=== PATIENT | male | born 1990 | race Caucasian/White ===

== ENCOUNTER 2019-12-01 18:10 | Emergency (ER) | payer OTHER, SELFPAY ==
--- NOTE | ~2019-12-01 | CT_ITS ---
EXAMINATION: CT abdomen pelvis w con DATE: 12/01/2019 21:44 INDICATION: Left testicular pain TECHNIQUE: Computed tomography (CT) of the abdomen and pelvis was performed with 100 cc Omnipaque 350 intravenous contrast. Automated exposure control and iterative reconstruction technique were employe d. Exam dose: 401.49 mGy-cm total exam DLP. COMPARISON: None. FINDINGS: The lung bases are clear of infiltrate or consolidation. Normal heart size. No pericardial effusion or pleural effusion. The liver, gallbladder, bile ducts, spleen, pancreas and pancreatic duct are normal in appearance. No rmal morphology of the adrenal glands. 1.8 cm right renal cyst. There is a very small lower pole nonobstructing left renal calculus. No urin gucci tract obstruction or hydroureteronephrosis. Normal caliber of the abdominal aorta. No intraperitoneal or retroperitoneal or pelvic mass lesion or adenopathy or ascites. Status post appendectomy. There is mild diverticulosis of the of the left colon; no CT evidence of diverticulitis. No bowel obs truction, bowel wall thickening, pneumatosis or intraperitoneal free air. There is a small fat-containing umbilical hernia. The urinary bladder, prostate gland and seminal vesicles are unremarkable. Included skeletal structures are unremarkable. IMPRESSION: 1.8 cm right renal cyst Nonobstructing small lower pole left renal calculus; no ureteral calculus or hydroureteronephrosis Diverticulosis of the left colon Reviewed, dictated and finalized at [facility]. Reviewed, dictated and finalized at [facility]. IMPRESSION: 1.8 cm right renal cyst Nonobstructing small lower pole left renal calculus; no ureteral calculus or hy droureteronephrosis Diverticulosis of the left colon
--- NOTE | ~2019-12-01 | US_ITS ---
US scrotum doppler DATE: 12/01/2019 20:57 INDICATION: Left scrotal pain TECHNIQUE: Real-time and color flow imaging and Doppler analysis of the scrotal contents COMPARISON: None FINDINGS: The right testicle measures 4.3 x 3.1 x 2.3 cm. The left testicle measures 4.7 x 2.7 x 2.3 cm. There is vascular flow to both testicles on Doppler and color flow imaging. No testicular mass le anne or torsion is evident. The epididymis appears normal bilaterally. . On Valsalva maneuver the pampiniform plexus veins on the left measuring up to 2.2 mm dimension IMPRESSION: Mild left varicocele Reviewed, dictated and finalized at [facility]. Reviewed, dictated and finalized at [facility]. IMPRESSION: Mild left varicocele
[2019-12-01 18:23] VITALS: BP 132/85; PULSE 91; RESP 18; TEMP 36.3; O2SAT 98
[2019-12-01 19:46] LABS: Add Urine Microscopic? NO; Appearance Urine Clear (Clear); Bilirubin Urine Negative (Negative); Blood Urine Negative (Negative); Color Urine Straw (Yellow); Glucose Urine UA Negative (Negative); Ketones Urine Negative (Negative); Leukocyte Esterase Ur Negative LEU/UL (Negative); Nitrate Urine Negative (Negative); Protein Urine Negative (Negative); Specific Grav Ur 1.013 (1.001-1.035); Urobilinogen Urine Negative mg/dL (<2.0)
--- NOTE | 2019-12-01 20:02 | ED.MALEGU ---
HPI - Male Genitourinary General Chief complaint: Urogenital-Male Stated complaint: back pain/ testicle pain Time Seen by Provider: 12/01/19 19:36 Source: patient Mode of arrival: ambulatory Limitations: no limitations History of Present Illness HPI Narrative: This patient is a 29 year old male who presents for evaluation of tailbone pain and left testicular pain for 2 weeks. PAtient states he has had constant sharp pain to his tail bone for 2 weeks. He denies any trauma. He does state this pain is worse with sitting. He also has left testicular pain for 2 weeks and today he is now have right testicular pain. He states his testicle is tender but denies swelling or redness. Today he reports bubbling sensation to left pelvis into his testicle. He has no nausea or vomiting. HE denies urinary symptoms. Complaint: testicle pain Onset (ago): week(s) (2) Severity scale (1-10): 5 Related Data Home Medications Medication Instructions Recorded Confirmed Adderall 20 mg PO DAILY 12/01/19 12/01/19 Allergies Allergy/AdvReac Type Severity Reaction Status Date / Time No Known Allergies Allergy Verified 12/01/19 19:33 Review of Systems Review of Systems: All systems reviewed & are unremarkable except as noted in HPI and below Constitutional: Constitutional: Denies body ache(s) and Denies chills Gastrointestinal: Gastrointestinal: Reports abdominal pain Genitourinary: Genitourinary: Denies difficulty with ejaculations, Denies genital lesions, Denies dysuria, Denies penile discharge and Reports testicular pain PMFSH Past Medical History Medical History (Updated 12/02/19 @ 00:00 by Brianda Echols) Patient denies medical problems Surgical History Surgical History (Updated 12/01/19 @ 20:02 by Asia Owen MD) Hx of appendectomy Social History Social History (Updated 12/01/19 @ 20:03 by Asia Owen MD) Smoking status: Never smoker Substance use type: marijuana Gender identity (if verbalized by the patient): Male Exam Narrative: Exam Narrative: GENERAL: Well-appearing, well-nourished, and in no acute distress. HEAD: Normocephalic, atraumatic EYES: PERRLA and EOMI, conjunctiva clear without discharge EARS: TM's clear bilaterally without erythema or dullness NOSE: Nares clear, no rhinorrhea or epistaxis THROAT:Mucous membranes moist, Oropharynx normal without erythema, exudate, peritonsillar swelling or fluctuance NECK: Supple, without lymphadenopathy or mass RESPIRATORY: No respiratory distress, Airway patent, Respirations non-labored, Clear to auscultation without rales, rhonchi or wheeze HEART: Regular rate and rhythm. No murmur heard. Normal peripheral pulses. ABDOMEN: Soft, nontender, nondistended, normal active bowel sounds. No masses. No rebound or guarding, No organomegaly. EXTREMITIES: No edema, normal strength with full range of motion. SKIN: Warm, dry, normal color without rash NEURO: Alert and oriented x3. CN 2-12 grossly intact. No focal deficits. PSYCH: Normal mood and affect. Course Vital Signs Vital signs: Vital Signs Temperature 97.3 F L 12/01/19 18:23 Pulse Rate 91 12/01/19 18:23 Respiratory Rate 18 12/01/19 18:23 Blood Pressure 132/85 12/01/19 18:23 Pulse Oximetry 98 12/01/19 18:23 Temperature 97.3 F L 12/01/19 18:23 Pulse Rate 88 12/01/19 21:04 Respiratory Rate 17 12/01/19 21:04 Blood Pressure 128/74 12/01/19 21:04 Pulse Oximetry 99 12/01/19 21:04 MDM - Male Genitourinary Lab Data Attestation: I reviewed the patient's lab results. Result diagrams: 12/01/19 20:14 12/01/19 20:14 Labs: Lab Results 12/01/19 12/01/19 12/01/19 Range/Units 19:38 20:14 20:14 WBC 5.8 (4.5-10.0) K/mm3 RBC 5.83 (4.6-6.20) M/mm3 Hgb 17.3 (14.0-18.0) g/dL Hct 49.2 (42.0-52.0) % MCV 84.4 (80-100) fl MCH 29.7 (26-34) pg MCHC 35.2 (32-36) g/dl RDW 12.3 (11.5-14.5)
[2019-12-01 20:19] LABS: Basophils Absolute Auto 0.1 K/mm3 (0.0-0.1); Basophils Percent Auto 1.2 % (0.2-1.2); Eosinophils Absolute Auto 0.1 K/mm3 (0-0.3); Hematocrit 49.2 % (42.0-52.0); Hemoglobin 17.3 g/dL (14.0-18.0); Immature Granulocyte Absolute 0.01 K/mm3 (0.00-0.031); Immature Granulocyte Percent A 0.2 % (0-0.5); Lymphocytes Absolute Auto 2.23 K/mm3 (0.9-3.2); Lymphocytes Percent Auto 38.6 % (18.3-44.2); Mean Corpuscular HGB Conc 35.2 g/dl (32-36); Mean Corpuscular Hemoglobin 29.7 pg (26-34); Mean Corpuscular Volume 84.4 fl (80-100); Monocytes Absolute Auto 0.6 K/mm3 (0.1-0.6); Monocytes Percent Auto 9.5 % (2.6-8.5); Neutrophils Absolute Auto 2.9 K/mm3 (1.3-6.7); Neutrophils Percent Auto 49.5 % (45.5-73.1); Platelet Count Result 210 k/mm3 (150-375); Red Blood Count 5.83 M/mm3 (4.6-6.20); Red Cell Distribution Width 12.3 % (11.5-14.5); White Blood Count 5.8 K/mm3 (4.5-10.0)
[2019-12-01 20:31] LABS: Alanine Aminotransferase 30 U/L (4-50); Albumin Level 4.7 g/dL (3.5-5.1); Alkaline Phosphatase 64 U/L (38-126); Aspartate Amino Transferase 30 U/L (17-59); Bilirubin,Total 0.7 mg/dL (0.2-1.3); Blood Urea Nitrogen 14 mg/dL (9-20); Calcium 9.5 mg/dL (8.4-10.2); Carbon Dioxide 28 mmol/L (22-30); Chloride 101 mmol/L (98-107); Estimated CRCL calculation 98 ml/min; Estimated Glomerular Filt Rate > 60; Glucose 83 mg/dL (75-110); Potassium 3.9 mmol/L (3.4-5.0); Sodium 138 mmol/L (137-145)
[2019-12-01 21:04] VITALS: BP 128/74; PULSE 88; RESP 17; O2SAT 99
== END 2019-12-01 23:00 | disposition home or self-care (01) ==
PROVIDERS: Emergency Provider General Practice
DX: I86.1 Scrotal varices (principal); K57.90 Diverticulosis of intestine, part unspecified, without perforation or abscess without bleeding; N20.0 Calculus of kidney
CPT/HCPCS: 36415; 74177; 76870; 80053; 81003; 85025; 93976; 99284; Q9967

== ENCOUNTER → 2019-12-08 16:03 | Outpatient (CLI) | payer OTHER, SELFPAY ==
--- NOTE | ~2019-12-08 | XR_ITS ---
XR lumbar spine 2-3V 12/08/2019 16:22 Indication: Low back pain Procedure: 3 views lumbar spine Comparison: No prior studies for comparison. Findings: Mild levocurvature of the lumbar spine. Vertebral body and disc heights are preserved. Pedi cles intact. Sacral foramen are symmetric. No sacral abnormality seen. Impression: 1: No significant abnormality of the lumbar spine. Reviewed, dictated and finalized at [facility]. Impression: 1: No significant abnormality of the lumbar spine.
== END ==
DX: M54.5 Low back pain (principal)
CPT/HCPCS: 72100

== ENCOUNTER 2020-11-22 16:11 | Emergency (ER) | payer OTHER, SELFPAY ==
--- NOTE | 2020-11-22 16:22 | ED.GENADULT ---
HPI - General Adult General Chief complaint: Headache Stated complaint: Headache Time Seen by Provider: 11/22/20 16:22 Source: patient and RN notes reviewed Mode of arrival: ambulatory Limitations: no limitations History of Present Illness HPI narrative: 30-year-old male presents with complaints of intermittent headache (not the worst of his life) with aura (light sensitivity, nausea, and vomiting) for the past 7 days. Peter reports increasing symptoms, rating a 3/10 NUMBERS at this time. Ibuprofen (last taken on 11/19/2020), Naproxen (last taken on 11/21/2020 at approximately 22:00), and Tylenol #4 (last taken on 11/22/2020 at approximately 10:00 AM) with little to no relief. No neck stiffness. No fever or chills. No URI symptoms. No head injury. History of migraines. Denies dizziness, vision change, confusion, or seizure activity. Intermittent nausea and vomiting without abdominal pain. Tolerating po intake well. The patient reports he has not been diagnosed with COVID-19. The patient reports he received 2 ASSET4 COVID-19 vaccines in Sep, 2020. The patient reports he is not waiting for the results of a COVID-19 lab test. The patient reports he does not have weakness, fatigue, myalgia, or facial swelling. The patient reports he does not not have a new or worsening cough or shortness of breath. Denies chest pain. The patient reports he does not have any rhinorrhea, congestion, sore throat, and diarrhea. Denies recent traveling. Denies concerns for COVID-19 or exposures. At this time, the patient is not suspected of having COVID-19. Some parts of this dictation were generated by voice recognition software and may contain typographical and/or grammatical inaccuracies. Related Data Home Medications Medication Instructions Recorded Confirmed acetaminophen-codeine 1 tablet Q3-4H 11/22/20 11/22/20 lisdexamfetamine [Vyvanse] 50 mg DAILY 11/22/20 11/22/20 naproxen 500 mg BID 11/22/20 11/22/20 Allergies Allergy/AdvReac Type Severity Reaction Status Date / Time No Known Allergies Allergy Verified 12/01/19 19:33 Review of Systems Review of Systems: Narrative: CONSTITUTIONAL: Denies fever, chills, sweats. EYES: Denies visual changes, redness, discharge. ENT: Denies rhinorrhea, congestion, sore throat, otalgia. CARDIOVASCULAR: Denies chest pain, palpitations, edema. RESPIRATORY: Denies dyspnea, wheezing, cough. GASTROINTESTINAL: Denies abdominal pain, diarrhea. Complaints of nausea, vomiting. GENITOURINARY: Denies dysuria, hematuria, abnormal discharge. SKIN: Denies rash or itching. MUSCULOSKELETAL: Denies acute back pain, joint pain, or myalgia. NEUROLOGIC: Denies numbness or focal weakness. Complaints of headaches with aura. PSYCHIATRIC: Denies anxiety or depression. All systems reviewed & are unremarkable except as noted in HPI and below. [facility]LY [facility] Past Medical History Medical History (Updated 11/28/20 @ 15:08 by MOSES Prado) ADD (attention deficit disorder) without hyperactivity Hx of migraines Surgical History Surgical History Hx of appendectomy Family History Family History (Updated 11/28/20 @ 15:07 by MOSES Prado) Father Alive and well Mother Allergies Glaucoma Social History Social History (Updated 11/28/20 @ 15:09 by MOSES Prado) Smoking status: Former smoker Tobacco type: cigarettes Second hand tobacco smoke exposure: No Smoking end date: 06/27/13 Alcohol intake: current Substance use: current Substance use type: marijuana Living arrangements: with family Occupation/Education: occupation Gender identity (if verbalized by the patient): Male Comments At time of signature, agree with the nurse past medical, surgical, social, and family history. There is no relevant family history pertinent to the presenting complaint. Exam Narrative: Exam Narrative: GENERAL: This is a we
[2020-11-22 16:25] VITALS: BP 137/85; PULSE 70; RESP 18; TEMP 36.8; O2SAT 99
[2020-11-22] MEDS: KETOROLAC (*BKC) 60 MG/2 ML VIAL IM (16:44)
[2020-11-22] MEDS: ONDANSETRON HCL ODT 4 MG TABLET PO (16:44)
== END 2020-11-22 16:58 | disposition home or self-care (01) ==
PROVIDERS: Emergency Provider Nurse Practitioner Family
DX: R51.9 Headache, unspecified (principal); F98.8 Other specified behavioral and emotional disorders with onset usually occurring in childhood and adolescence
CPT/HCPCS: 96372; 99213; A9270; G0463; J1885

== ENCOUNTER → 2020-12-24 13:24 | Outpatient (CLI) | payer OTHER, SELFPAY ==
--- NOTE | ~2020-12-24 | MR_ITS ---
EXAMINATION: MR brain/brain stem wo/w con EXAM DATE: 12/24/2020 14:03 INDICATION: Episodic tension-type headache. TECHNIQUE: Magnetic resonance imaging (MRI) of the brain/brain stem obtained without contrast. Sagit ron T1, axial diffusion, gradient echo (T2*), T1, T2, FLAIR sequences obtained. Patient was then inj ected with 15 cc intravenous Multihance contrast. Axial and coronal postcontrast T1 weighted sequence s obtained. There is no prior study for comparison. FINDINGS: Small arachnoid cyst in the posterior fossa posterior medially. This is not a clinically si gnificant finding. There are no areas of restricted diffusion to suggest acute infarction. There is no acute hemorrhage seen on the T2*, a hemosiderin sensitive sequence. No intraparenchymal brain mas s. The ventricles are normal in size. There are no extra-axial collections. Flow voids are seen in the cerebral arteries on the T2-weighted sequences consistent with their expected patency. The orbit s are unremarkable. Soft tissue is unremarkable. There are no areas of abnormal enhancement on the post contrast images. IMPRESSION: 1. Unremarkable brain MRI examination. Reviewed, dictated and finalized at location [facility].
[2020-12-24 13:45] LABS: Estimated Glomerular Filt Rate > 60
== END ==
DX: G44.211 Episodic tension-type headache, intractable (principal)
CPT/HCPCS: 70553; A9577

== ENCOUNTER 2023-09-16 09:41 | Outpatient (CLI) | payer OTHER, SELFPAY ==
[2023-09-22 18:06] VITALS: BMI 27.8
--- NOTE | 2023-09-22 18:06 | WPDHOMESLEEP ---
Sleep Study - Home Unattended Date of Study: 09/16/23 Ordering Provider: Hernan Arreola DO Interpreting Provider: Cee Godoy DO Home Sleep Study Type: Watch PAT Height: 1.75 m Weight: 85.729 kg Body Mass Index: 27.8 Neck Circumference (inches): 16 Brady: 0 Reason for Sleep Study Loud snoring, witnessed apneas Sleep History The patient is a 33-year-old male with anxiety, ADHD, chronic headaches, GERD and history of tobacco use that had a sleep study ordered by his primary care physician for evaluation of sleep apnea. The patient rarely awakens from sleep short of breath. He denies awakening at night with heartburn, belching or cough. He constantly snores loudly enough that others complain. He frequently has trouble sleeping when he has a cold. He denies waking up gasping for air throughout the night. He occasionally has breathing problems at night observed by himself or others. He occasionally sweats excessively at night. He rarely has heart palpitations or irregular heartbeats during the night. He denies falling asleep during the day and while driving. He denies sleep paralysis and cataplexy. He frequently has trouble at school or work due to sleepiness. He rarely experiences vivid dreamlike scenes upon awakening or falling asleep. He denies feeling afraid of going to sleep. He rarely has nightmares. He rarely remembers his dreams. He constantly has thoughts racing through his mind. He occasionally feels sad or depressed. He frequently has anxiety. He occasionally has muscular tension. He frequently notices parts of his body jerk. He occasionally kicks during the night. He occasionally has crawling and aching feelings in his legs and occasionally has leg pain during the night. He rarely grinds his teeth during sleep and rarely awakens with morning jaw pain. He is occasionally bothered by pain during the day but never awakened by pain during the night. He occasionally wakes up feeling stiff in the morning. He occasionally wakes up with sore or achy muscles. He occasionally wakes up with pain in the neck, spine and other joints. He goes to bed between 11:00 p.m. to 1:00 a.m. on and week and between 10:00 p.m. to 12:00 a.m. on the weekends. It can take anywhere from 20-60 minutes to fall asleep. He wakes up twice throughout the night at most for unknown reasons but is able to fall back asleep within a few minutes. He wakes up at 10:00 a.m. on weekdays and at 5:00 a.m. on the weekends. He typically gets 5 hours of sleep per night on work nights and around 8 hours of sleep per night on the weekends. He will stay in bed for 1 hour at most on his days off. He currently lives with his . He denies consuming any caffeinated beverages within 2 hours of bedtime. He denies engaging in physical exercise before bedtime. He will read and watch television before falling asleep. He denies taking naps in the afternoon or evening. He consumes 1 energy drink per day. He is a former smoker. He consumes 2-3 alcoholic beverages per day. He uses an unspecified recreational drugs. [facility] Past Medical History Medical History ADD (attention deficit disorder) without hyperactivity Hx of migraines Surgical History Surgical History Hx of appendectomy Family History Family History Father Alive and well Mother Allergies Glaucoma Social History Social History Social History: caffeine 1 [employer] daily Smoking status: Former smoker Tobacco type: cigarettes Second hand tobacco smoke exposure: No Smoking end date: 06/27/13 Alcohol intake: current Drinks per week: 3 Substance use: current Substance use type: marijuana Lack of Transportation: No Lack of Food: Nev
== END 2023-09-17 07:30 | disposition home or self-care (01) ==
PROVIDERS: PCP Family Medicine; Visit Provider Family Medicine
DX: R06.83 Snoring (principal); G47.10 Hypersomnia, unspecified
CPT/HCPCS: 95800

== ENCOUNTER 2023-10-04 09:26 | Outpatient (CLI) | payer OTHER, SELFPAY ==
[2023-10-18 15:01] VITALS: BMI 26.9
--- NOTE | 2023-10-18 15:01 | WPDSLEEPSTUD ---
Sleep Study Date of Study: 10/04/23 Ordering Provider: Hernan Arreola DO Interpreting Physician: Cee Godoy DO Sleep Study Type: Polysomnogram Height: 1.75 m Weight: 82.554 kg Body Mass Index: 26.9 Neck Circumference (inches): 15.75 [place]: 0 Reason for Sleep Study Loud snoring, witnessed apneas Sleep History The patient is a 33-year-old male with anxiety, ADHD, chronic headaches, GERD and history of tobacco use that had a sleep study ordered by his primary care physician for evaluation of sleep apnea. The patient rarely awakens from sleep short of breath. He denies awakening at night with heartburn, belching or cough. He constantly snores loudly enough that others complain. He frequently has trouble sleeping when he has a cold. He denies waking up gasping for air throughout the night. He occasionally has breathing problems at night observed by himself or others. He occasionally sweats excessively at night. He rarely has heart palpitations or irregular heartbeats during the night. He denies falling asleep during the day and while driving. He denies sleep paralysis and cataplexy. He frequently has trouble at school or work due to sleepiness. He rarely experiences vivid dreamlike scenes upon awakening or falling asleep. He denies feeling afraid of going to sleep. He rarely has nightmares. He rarely remembers his dreams. He constantly has thoughts racing through his mind. He occasionally feels sad or depressed. He frequently has anxiety. He occasionally has muscular tension. He frequently notices parts of his body jerk. He occasionally kicks during the night. He occasionally has crawling and aching feelings in his legs and occasionally has leg pain during the night. He rarely grinds his teeth during sleep and rarely awakens with morning jaw pain. He is occasionally bothered by pain during the day but never awakened by pain during the night. He occasionally wakes up feeling stiff in the morning. He occasionally wakes up with sore or achy muscles. He occasionally wakes up with pain in the neck, spine and other joints. He goes to bed between 11:00 p.m. to 1:00 a.m. on and weekdays and between 10:00 p.m. to 12:00 a.m. on the weekends. It can take anywhere from 20-60 minutes to fall asleep. He wakes up twice throughout the night at most for unknown reasons but is able to fall back asleep within a few minutes. He wakes up at 10:00 a.m. on weekdays and at 5:00 a.m. on the weekends. He typically gets 5 hours of sleep per night on work nights and around 8 hours of sleep per night on the weekends. He will stay in bed for 1 hour at most on his days off. He currently lives with his . He denies consuming any caffeinated beverages within 2 hours of bedtime. He denies engaging in physical exercise before bedtime. He will read and watch television before falling asleep. He denies taking naps in the afternoon or evening. He consumes 1 energy drink per day. He is a former smoker. He consumes 2-3 alcoholic beverages per day. He uses an unspecified recreational drugs. [facility] Past Medical History Medical History ADD (attention deficit disorder) without hyperactivity Hx of migraines Surgical History Surgical History Hx of appendectomy Family History Family History Father Alive and well Mother Allergies Glaucoma Social History Social History Social History: caffeine 1 [employer] daily Smoking status: Former smoker Tobacco type: cigarettes Second hand tobacco smoke exposure: No Smoking end date: 06/27/13 Alcohol intake: current Drinks per week: 3 Substance use: current Substance use type: marijuana Lack of Transportation: No Lack of Food: Never True Curre
== END 2023-10-05 06:35 | disposition home or self-care (01) ==
PROVIDERS: PCP Family Medicine; Visit Provider Family Medicine
DX: G47.61 Periodic limb movement disorder (principal); G47.10 Hypersomnia, unspecified
CPT/HCPCS: 95810

== ENCOUNTER 2023-10-20 14:19 | Outpatient (CLI) | payer OTHER, SELFPAY ==
[2023-10-20 19:59] LABS: Basophils Absolute Auto 0.1 K/mm3 (0.0-0.1); Basophils Percent Auto 1.2 % (0.2-1.2); Eosinophils Percent Auto 0.3 % (0-4.4); Hemoglobin 16.9 g/dL (14.0-18.0); Immature Granulocyte Absolute 0.01 K/mm3 (0.00-0.031); Immature Granulocyte Percent A 0.2 % (0-0.5); Lymphocytes Absolute Auto 2.12 K/mm3 (0.9-3.2); Lymphocytes Percent Auto 34.9 % (18.3-44.2); Mean Corpuscular HGB Conc 35.2 g/dl (32-36); Mean Corpuscular Hemoglobin 30.9 pg (26-34); Mean Corpuscular Volume 87.8 fl (80-100); Mean Platelet Volume 11.2 fl (7.4-10.4); Monocytes Absolute Auto 0.5 K/mm3 (0.1-0.6); Monocytes Percent Auto 8.2 % (2.6-8.5); Neutrophils Absolute Auto 3.4 K/mm3 (1.3-6.7); Neutrophils Percent Auto 55.2 % (45.5-73.1); Platelet Count Result 223 k/mm3 (150-375); Red Blood Count 5.47 M/mm3 (4.6-6.20); Red Cell Distribution Width 11.9 % (11.5-14.5); White Blood Count 6.1 K/mm3 (4.5-10.0)
[2023-10-20 20:13] LABS: Iron 80 ug/dL (49-181)
[2023-10-20 20:22] LABS: Alanine Aminotransferase 22 U/L (6-50); Albumin Level 4.5 g/dL (3.5-5.1); Alkaline Phosphatase 64 U/L (38-126); Anion Gap 6 mmol/L (4-12); Aspartate Amino Transferase 32 U/L (17-59); Bilirubin,Total 0.8 mg/dL (0.2-1.3); Blood Urea Nitrogen 13 mg/dL (9-20); Calcium 9.7 mg/dL (8.4-10.2); Carbon Dioxide 29 mmol/L (22-30); Chloride 102 mmol/L (98-107); Cholesterol 170 mg/dL (0-200); Estimated Glomerular Filt Rate > 60; Glucose 79 mg/dL (65-110); HDL Direct 32 mg/dL; Potassium 3.6 mmol/L (3.4-5.0); Sodium 137 mmol/L (137-145); Triglycerides 122 mg/dL (<150)
[2023-10-20 20:42] LABS: Percent Iron Saturation 22 % (20-50)
[2023-10-20 20:46] LABS: LDL Cholesterol Direct 118 mg/dL
== END 2023-10-20 14:20 | disposition home or self-care (01) ==
LOC: ANHGOSHLAB 14:20
PROVIDERS: PCP Family Medicine; Visit Provider Family Medicine
DX: R53.83 Other fatigue (principal); D50.9 Iron deficiency anemia, unspecified; Z13.228 Encounter for screening for other metabolic disorders; Z13.220 Encounter for screening for lipoid disorders
CPT/HCPCS: 36415; 80053; 80061; 82728; 83540; 83550; 85025

== ENCOUNTER 2023-12-06 13:20 | Outpatient (CLI) | payer OTHER, SELFPAY ==
--- NOTE | ~2023-12-06 | US_ITS ---
EXAMINATION: US soft tissue groin RT DATE: 12/06/2023 13:45 INDICATION: Other intra-abdominal and pelvic swelling. TECHNIQUE: Multiple grayscale and Doppler ultrasound images of the right groin were obtained. COMPARISON: CT abdomen and pelvis 12/01/2019 FINDINGS: There is a right inguinal hernia containing fat. IMPRESSION: 1. Right inguinal hernia containing fat. Reviewed, dictated and finalized at location E.
== END 2023-12-06 13:21 ==
LOC: MICIMG 13:21
PROVIDERS: PCP Family Medicine; Visit Provider Family Medicine
DX: K40.90 Unilateral inguinal hernia, without obstruction or gangrene, not specified as recurrent (principal)
CPT/HCPCS: 76882

== ENCOUNTER 2023-12-25 13:23 | Outpatient (CLI) | payer OTHER, SELFPAY | END 2023-12-25 13:24 | disposition home or self-care (01) | LOC: ANHLAB 13:25 | PROVIDERS: PCP Family Medicine; Visit Provider Anesthesiology | DX: K40.90 Unilateral inguinal hernia, without obstruction or gangrene, not specified as recurrent (principal); Z01.818 Encounter for other preprocedural examination | CPT/HCPCS: 36415; 86850; 86900; 86901 ==

== ENCOUNTER 2023-12-28 00:05 | Day surgery (SDC) | payer OTHER, SELFPAY ==
[2023-12-23 14:18] VITALS: BMI 25.5
--- NOTE | 2023-12-23 14:24 | PC.NURSE ---
Report to the Outpatient Waiting Room, entrance under the green pavilion located off [facility], at time _1200_ on date _[id number]_. Planned Procedure Time: _2pm_. Time changes happen often and if your time is changed the preop area will call you the afternoon before. - You and your visitor will be asked to self-screen and do not enter if you have any COVID symptoms. - A mask is optional within the hospital at this time. Patients may have clear liquids (water, carbonated beverages, clear teas, apple juice) until 3 hours prior to surgery with a maximum of 20 ounces. - No food from midnight until time of surgery Take the following medications with a SIP of water the morning of surgery: ____None DO NOT STOP ANY OF YOUR OTHER PRESCRIPTION MEDICATIONS PRIOR TO SURGERY ?EXCEPT THE FOLLOWING Medications to discontinue per physician None Date to take last dose Please no make-up, nail icelandic, hairspray, perfume, deodorant, or body powder the day of surgery. No jewelry (including any body piercings) or valuables the day of surgery, leave them at home. Please take a shower or bath the night before, or the morning of, surgery with an antibacterial soap. Wear comfortable, loose fitting clothing. - Jewelry must be removed prior to entering the operating room. Rings and piercings that are not removed may be cut off. - The hospital will not accept responsibility for valuables. - Please leave all valuables, including medications, at home the day of surgery. If you are going home after surgery, a licensed [employer] company driver must drive you home. - NO public transportation without another adult if you receive anesthesia. - We recommend that an adult stay with you for 24 hours following discharge. - We also recommend that you do not drive, make important decision, drink alcoholic beverages, or take any drugs that were not prescribed by your health care provider for at least 24 hours after your discharge time. Follow any additional instructions given to you from your surgeon. If you or anyone in your household have experienced Covid symptoms in the past week, please notify your surgeon or the nurse liaison at the phone number below for possible testing. Telephone instructions given to _Zach__and asked if any additional questions and then verbalized understanding. Patient advised to call surgeon office or pre surgery nurse liaison [phone] if any additional questions.
[2023-12-28] VITALS (10 sets, daily range): BP systolic 107–123; BP diastolic 61–79; PULSE 70–90; RESP 14–18; TEMP 36.3–36.7; O2SAT 99–100; BMI 25.0
[2023-12-28] MEDS: LACTATED RINGERS 1,000 ML 30 ML IV CONT ×2 (12:45→16:05)
[2023-12-28] MEDS: ACETAMINOPHEN 500 MG TABLET 1000 MG PO (13:10)
[2023-12-28] MEDS: KETOROLAC 15 MG/ML VIAL (*BKC) IV PUSH (13:10)
--- NOTE | 2023-12-28 13:29 | WPDANESEPPF ---
Anes - Initial Pre Proc Eval Procedure: Operation Date: 12/28/23 14:00 Proposed Procedures p Laparoscopic Right Inguinal Hernia Repair with Mesh, Davinci Assisted - Raheem Borja DO Date/Time: 12/28/23 13:29 Surgeon: Raheem Borja DO Pre Op Diagnosis: Right Ing Hernia Patient Data Age: 33 Gender: M Height: 1.75 m Weight: 78.6 kg Allergies Allergy/AdvReac Type Severity Reaction Status Date / Time No Known Allergies Allergy Verified 12/27/23 10:24 Home Medications Medication Instructions Recorded Confirmed Type atogepant 60 mg tablet (Qulipta) 60 mg PO DAILY #30 tabs 04/06/23 12/27/23 Rx Vyvanse 60 mg capsule 60 mg PO DAILY #30 caps 11/11/23 12/27/23 Rx (lisdexamfetamine) ubrogepant 100 mg tablet (Ubrelvy) 100 mg PO ONCE #16 tabs 11/11/23 12/27/23 Rx ropinirole 1 mg tablet See Rx Instructions .Route 11/15/23 12/27/23 Rx .COMPLEX #90 tabs azelastine 137 mcg (0.1 %) nasal 137 mcg (0.137 mL) intranasal . 12/27/23 12/27/23 Rx spray q.h.s. chronic seasonal allergic rhinitis #30 mL Patient hx anesthesia problems: none Family hx anesthesia problems: none Results Review: All pre-operative results and documents have been reviewed as part of the pre-operative evaluation. [facility] Past Medical History Medical History ADD (attention deficit disorder) without hyperactivity Hx of migraines Surgical History Surgical History Hx of appendectomy Family History Family History Father Alive and well Glaucoma Mother Allergies Social History Social History Social History: caffeine 1 [employer] daily Smoking status: Never smoker Tobacco type: cigarettes Second hand tobacco smoke exposure: No Smoking end date: 06/27/13 Alcohol intake: current Drinks per week: 4 Substance use: current Substance use type: marijuana Other substance usage details: once or twice a week. Lack of Transportation: No Lack of Food: Never True Current Housing: I Have Housing Concerned About Future Housing: No Difficulty Paying Gas/Electric Bills: No Difficulty Paying for Meds: No Currently Unemployed: No Education: High School Diploma/GED Difficulty w/ Childcare or Family Care: No Living arrangements: with family Additional living arrangements comments: Occupation/Education: occupation Gender identity (if verbalized by the patient): Male Sexual Orientation (if Verbalized by the Patient): Straight or Heterosexual Spiritual care concerns: No Agree to blood products: Yes Anes - Eval Final PreProcedure Day of Procedure 12/28/23 13:29 Patient weight: normal Heart: regular rate and rhythm Lungs: clear to auscultation Airway: Mallampati scale class II Neurological: alert and oriented Last oral intake: >/= 8 hours ASA classification: II Emergent: no Anesthetic plan: proceed Anesthesia type and monitoring: general ETT and standard monitoring Results Review: All pre-operative results and documents have been reviewed as part of the pre-operative evaluation. Informed Consent: The patient's anesthetic plan and its attendant risks and benefits were discussed with the patient/family/POA. Questions were solicited and answers provided to the satisfaction of the patient/family/POA.
--- NOTE | 2023-12-28 13:54 | WPDHPUPDATE1 ---
History and Physical Update Update Date/Time: 12/28/23 13:54 History and Physical has been reviewed, including an updated exam of the patient. There are NO changes in the patient's condition. Risks, benefits, and alternatives have been discussed and questions answered. Patient agrees to proceed with procedure.
[2023-12-28] MEDS: ceFAZolin 2 GM/D5W 50 ML 2 GM/50 ML BAG IVPB (14:16)
[2023-12-28] MEDS: BUPIVACAINE/EPINEPHRINE 0.5% 50 ML VIAL 30 ML INFILTRATE (14:48)
--- NOTE | 2023-12-28 15:15 | W.PM.PROC2 ---
Procedure Note - Detailed Date of Procedure 12/28/23 Pre-op Diagnosis Right Inguinal Hernia Post-op Diagnosis Same (Indirect RIH) Procedure Performed Laparoscopic right inguinal hernia repair with mesh, da Caryn assisted Surgeon Raheem Borja, Anesthesia General and Local (0.5% bupivacaine with epinephrine) Indications This is a 33-year-old man who presented with a right inguinal hernia. He had noticed a bulge about 1 month ago and he notices some tenderness and occasional twinges of pain with movements. Was found have a reducible right inguinal hernia on exam and ultrasound was obtained which also confirmed evidence of a right inguinal hernia. Discussions were made with the patient about treatment options and decision was made to proceed with robotic assisted laparoscopic right inguinal hernia repair with mesh. Findings Robotic assisted laparoscopic right inguinal hernia repair was performed. The patient was found to have an indirect right inguinal hernia. A robotic transabdominal preperitoneal approach was utilized for repair. Once a wide enough preperitoneal pocket was created and the hernia sac was reduced, I then placed a large right 3DMax mid mesh overlying the entire right myopectineal orifice. No specimens were obtained for pathology and no other abnormalities were noted. Description of Procedure Procedure as well as risks, benefits, and alternatives were discussed with the patient. Written consent was obtained and placed in chart prior to procedure. Patient was brought back to surgical suite. He was placed supine on operating table. Time-out was done to confirm patient and procedure. He was then intubated by Anesthesia Department. His abdomen was prepped and draped in sterile fashion using chlorhexidine prep. 0.5% bupivacaine with epinephrine was infiltrated at each location for incision. An 8 mm incision was made in the left lateral abdomen, and a 5 mm Optiview trocar was advanced through the abdominal layers under direct visualization. Once inside the abdominal cavity, carbon dioxide insufflation was used to create a pneumoperitoneum. A camera was inserted and the abdominal cavity was inspected. The patient was placed in slight Trendelenburg position. An 8 millimeter incision was made on the right lateral abdomen and an 8 millimeter trocar was inserted under direct visualization. Another 8 millimeter incision was made just superior to the umbilicus and an 8 millimeter trocar was inserted under direct visualization. The 5 mm port was then removed and this was replaced with another 8 mm robotic port. The robotic arms were brought up to the patient's bedside and secured to the ports. The camera and instruments were inserted. I then moved over to the robotic console and took control of the camera and instruments. After careful inspection of the abdominal cavity, I began scoring the peritoneum along the right lower quadrant using scissors with electrocautery. The preperitoneal plane was entered and this was carefully dissected caudally along the inferior epigastric vessels. Careful dissection with scissors with electrocautery and blunt dissection was used to continue this dissection. I dissected far enough laterally to allow for mesh placement, and also dissected medially to identify the pubic arch and Alec's ligament. The hernia sac was identified and carefully dissected posteriorly. The cord contents were also identified and the peritoneum was carefully dissected far enough posteriorly to allow for mesh placement. Once an adequate pocket was created, I then placed the mesh within the preperitoneal pocket and carefully unfolded it. The mesh was centered on the hernia defect with adequate overlap circumferentially. The inferior edge of the mesh was inspected to ensure that it was far enough away from the peritoneal edge. The mesh appeared in proper position overlying the entire myopectineal orifice. The mesh was secured using 3-
[2023-12-28] MEDS: oxyCODONE HCL (*CRX) 5 MG TAB IR PO (16:30)
== END 2023-12-28 17:48 | disposition home or self-care (01) ==
PROVIDERS: PCP Family Medicine; Visit Provider Surgery
PROC: 8E0Y4CZ Robotic Assisted Procedure of Lower Extremity, Percutaneous Endoscopic Approach (ICD-10-PCS; CPT 49650; principal; 2023-12-28 14:00)
DX: K40.90 Unilateral inguinal hernia, without obstruction or gangrene, not specified as recurrent (principal); F98.8 Other specified behavioral and emotional disorders with onset usually occurring in childhood and adolescence
CPT/HCPCS: 49650; S2900; 36415; 86850; 86900; 86901; A9270; C1781; J0690; J1100; J1885; J2250; J2405; J2704; J3010; J7030; J7120